=== PATIENT | male | born 1965 | race Caucasian/White ===

== ENCOUNTER 2018-03-07 16:49 | Emergency (ER) | payer SELFPAY ==
[~2018-03-07] VITALS: Ht 185.4 cm; Wt 107.0 kg
[2018-03-07 18:30] LABS: BASOPHILS % (AUTO) 1 % (0-10); EOSINOPHILS # (AUTO) 0.2 10^3/uL (0.0-0.3); EOSINOPHILS % (AUTO) 3 % (0-10); HEMATOCRIT 40 % (40-54); HEMOGLOBIN 14.1 G/DL (13.3-17.7); LYMPHOCYTES # (AUTO) 1.8 X 10^3 (1.0-4.0); LYMPHOCYTES % (AUTO) 23 % (12-44); MEAN CORPUSCULAR HEMOGLOBIN 31 PG (25-34); MEAN CORPUSCULAR HGB CONC 35 G/DL (32-36); MEAN CORPUSCULAR VOLUME 87 FL (80-99); MONOCYTES # (AUTO) 0.9 X 10^3 (0.0-1.0); MONOCYTES % (AUTO) 12 % (0-12); NEUTROPHILS # (AUTO) 4.7 X 10^3 (1.8-7.8); NEUTROPHILS % (AUTO) 62 % (42-75); PLATELET COUNT 368 10^3/uL (130-400); RED BLOOD COUNT 4.62 10^6/uL (4.35-5.85); RED CELL DISTRIBUTION WIDTH 13.1 % (10.0-14.5); WHITE BLOOD COUNT 7.6 10^3/uL (4.3-11.0)
[2018-03-07] MEDS ORDERED: NS IV 1000 ML 1,000 ML IV SCH ×2 (18:30→19:00)
[2018-03-07 18:45] LABS: ALBUMIN 4.5 GM/DL (3.2-4.5); BILIRUBIN,TOTAL 0.4 MG/DL (0.1-1.0); CALCIUM 10.5 MG/DL (8.5-10.1); CREATININE SERUM 1.81 MG/DL (0.60-1.30); POTASSIUM 4.1 MMOL/L (3.6-5.0); TOTAL PROTEIN 7.8 GM/DL (6.4-8.2)
[2018-03-07 19:20] LABS: BILIRUBIN,URINE NEGATIVE (NEGATIVE); CLARITY,URINE CLEAR; COLOR,URINE YELLOW; GLUCOSE, URINE (UA) 1+ (NEGATIVE); KETONES,URINE NEGATIVE (NEGATIVE); LEUKOCYTE ESTERASE ,URINE NEGATIVE (NEGATIVE); NITRITE,URINE NEGATIVE (NEGATIVE); PH,URINE 5 (5-9); PROTEIN,URINE NEGATIVE (NEGATIVE); UROBILINOGEN,URINE NORMAL (NORMAL)
[2018-03-07 19:27] LABS: HYALINE CASTS, URINE 25-50 /LPF; SQUAMOUS EPITHELIAL CELL,UR 0-2 /HPF
--- NOTE | 2018-03-07 19:27 | ED General ---
General Chief Complaint: Dizziness/Syncope Stated Complaint: DIZZINESS;LOW BP Nursing Triage Note: Pt reports blood pressure of 50/30 at home this morning. Pt states he has been dizzy and lethargic today Nursing Sepsis Screen: No Definite Risk Source of Information: Patient Exam Limitations: No Limitations History of Present Illness Date Seen by Provider: Mar 07, 2018 Time Seen by Provider: 19:25 Initial Comments To ER with reports of general malaise lethargic and dizzy. His blood pressure was measured at home to be 58/30 according to his . 3 days ago he was seen at [facility] for repeat sore throat. That has resolved but he now has a cough. Timing/Duration: 2-3 Days Severity: Moderate Associated Systoms: Cough, Fever/Chills (dry); No Nausea/Vomiting Allergies and Home Medications Allergies Coded Allergies: morphine (Unverified Allergy, Unknown, 03/07/18) Patient Home Medication List Home Medication List Reviewed: Yes Review of Systems Constitutional: see HPI EENTM: see HPI Respiratory: no symptoms reported Cardiovascular: no symptoms reported Genitourinary: no symptoms reported Musculoskeletal: no symptoms reported Skin: no symptoms reported Psychiatric/Neurological: No Symptoms Reported Hematologic/Lymphatic: No Symptoms Reported Past Ltwnpch-Mlafrr-Denmct Hx Patient Social History Alcohol Use: Denies Use Recreational Drug Use: No Smoking Status: Never a Smoker 2nd Hand Smoke Exposure: No Recent Foreign Travel: No Contact w/Someone Who Travel: No Recent Infectious Disease Expo: No Recent Hopitalizations: No Physical Abuse: No Sexual Abuse: No Seasonal Allergies Seasonal Allergies: No Past Medical History Surgeries: No Respiratory: No Cardiac: Yes Hypertension Neurological: No Genitourinary: No Gastrointestinal: No Musculoskeletal: No Endocrine: Yes (pre-diabetic) Cancer: No Psychosocial: No Nursing Suicide Risk Score: 0 Integumentary: No Blood Disorders: No Physical Exam Vital Signs Vital Signs - First Documented 03/07/18 17:18 Temp 97.6 Pulse 116 Resp 18 B/P (MAP) 110/73 (85) Pulse Ox 96 O2 Delivery Room Air Capillary Refill : Less Than 3 Seconds General Appearance: No Apparent Distress, WD/WN Eyes: Bilateral Eye Normal Inspection, Bilateral Eye PERRL, Bilateral Eye EOMI HEENT: PERRL/EOMI, TMs Normal Neck: Full Range of Motion, Normal Inspection Respiratory: No Accessory Muscle Use, No Respiratory Distress Cardiovascular: Regular Rate, Rhythm, Normal Peripheral Pulses Gastrointestinal: Normal Bowel Sounds, Non Tender, Soft Extremity: Normal Capillary Refill, Normal Inspection Neurologic/Psychiatric: Alert, Oriented x3, No Motor/Sensory Deficits Skin: Normal Color, Warm/Dry Progress/Results/Core Measures Suspected Sepsis Recent Fever Within 48 Hours: No Infection Criteria Present: None New/Unexplained Altered Menta: No Sepsis Screen: No Definite Risk SIRS Temperature:97.6 Pulse: 116 Respiratory Rate: 18 Laboratory Tests 03/07/18 18:02: White Blood Count 7.6 Blood Pressure 110 /73 Mean: 85 Laboratory Tests 03/07/18 18:02: Creatinine 1.81H, Platelet Count 368, Total Bilirubin 0.4 Results/Orders Lab Results Laboratory Tests Test 03/07/18 17:24 03/07/18 17:57 03/07/18 18:00 03/07/18 18:02 Range/Units Glucometer 234 H 70-110 MG/DL Group A Streptococcus Screen NEGATIVE NEGATIVE Monoscreen NEGATIVE NEGATIVE White Blood Count 7.6 4.3-11.0 10^3/uL Red Blood Count 4.62 4.35-5.85 10^6/uL Hemoglobin 14.1 13.3-17.7 G/DL Hematocrit 40 40-54 % Mean Corpuscular Volume 87 80-99 FL Mean Corpuscular Hemoglobin 31 25-34 PG Mean Corpuscular Hemoglobin Concent 35 32-36 G/DL Red Cell Distribution Width 13.1 10.0-14.5 % Platelet Count 368 130-400 10^3/uL Mean Platelet Volume 9.0 7.4-10.4 FL Neutrophils (%) (Auto) 62 42-75 % Lymphocytes (%) (Auto) 23 12-44 % Monocytes (%) (Auto) 12 0-12 % Eosinophils (%) (Auto) 3 0-10 % Basophils (%) (Auto) 1 0-10 % Neutrophils # (Auto) 4.7 1.8-7.8 X 10^3 Lymphocytes # (Auto) 1.8 1.0-4.0 X 10^3 Monocytes # (Auto) 0.9 0.0-1.0 X 10^3 Eosinophils # (Auto) 0.2 0.0-0.3 10^3/uL Basophils # (Auto) 0.0 0.0-0.1 10^3/uL Sodium Level 136 135-145 MMOL/L Potassium Level 4.1 3.6-5.0 MMOL/L Chloride Level 98 98-107 MMOL/L Carbon Dioxide Level 25 21-32 MMOL/L Anion Gap 13 5-14 MMOL/L Blood Urea Nitrogen 26 H 7-18 MG/DL Creatinine 1.81 H 0.60-1.30 MG/DL Estimat Glomerular Filtration Rate 40 BUN/Creatinine Ratio 14 Glucose Level 204 H 70-105 MG/DL Calcium Level 10.5 H 8.5-10.1 MG/DL Total Bilirubin 0.4 0.1-1.0 MG/DL Aspartate Amino Transf (AST/SGOT) 28 5-34 U/L Alanine Aminotransferase (ALT/SGPT) 38 0-55 U/L Alkaline Phosphatase 76 40-136 U/L Total Protein 7.8 6.4-8.2 GM/DL Albumin 4.5 3.2-4.5 GM/DL Lipase 27 8-78 U/L Test 03/07/18 19:12 Range/Units Urine Color YELLOW Urine Clarity CLEAR Urine pH 5 5-9 Urine Specific [place] 1.020 1.016-1.022 Urine Protein NEGATIVE NEGATIVE Urine Glucose (UA) 1+ H NEGATIVE Urine Ketones NEGATIVE NEGATIVE Urine Nitrite NEGATIVE NEGATIVE Urine Bilirubin NEGATIVE NEGATIVE Urine Urobilinogen NORMAL NORMAL MG/DL Urine Leukocyte Esterase NEGATIVE NEGATIVE Urine RBC (Auto) NEGATIVE NEGATIVE Urine RBC NONE /HPF Urine WBC NONE /HPF Urine Squamous Epithelial Cells 0-2 /HPF Urine Crystals NONE /LPF Urine Bacteria NONE /HPF Urine Casts PRESENT /LPF Urine Hyaline Casts 25-50 H /LPF Urine Mucus NONE /LPF Urine Culture Indicated NO My Orders Orders - TRI TALLEY APRN Cbc With Automated Diff (03/07/18 18:23) Comprehensive Metabolic Panel (03/07/18 18:23) Saline Lock/Iv-Start (03/07/18 18:23) Lipase (03/07/18 18:23) Ns Iv 1000 Ml (Sodium Chloride 0.9%) (03/07/18 18:30) Ua Culture If Indicated (03/07/18 18:47) Ns Iv 1000 Ml (Sodium Chloride 0.9%) (03/07/18 19:00) Rapid Strep A Screen (03/07/18 19:09) Monotest (4/11/18 19:09) Chest Pa/Lat (2 View) (03/07/18 19:09) Vital Signs/I&O 03/07/18 17:18 Temp 97.6 Pulse 116 Resp 18 B/P (MAP) 110/73 (85) Pulse Ox 96 O2 Delivery Room Air Capillary Refill : Less Than 3 Seconds Blood Pressure Mean: 85 Point of Care Testing Finger Stick Blood Glucose: 234 Departure Impression Primary Impression: Volume depletion Additional Impression: Viral syndrome Disposition: HOME, SELF-CARE Condition: Improved Departure-Patient Inst. Decision time for Depature: 20:17 Referrals: ANNE MARIE ROME MD (PCP) Primary Care Physician Patient Instructions: Syncope (Fainting) (DC) Add. Discharge Instructions: 1. Return to ER for any concerns 2. Medication as directed 3. Follow up with [facility] next week for recheck of kidney function All discharge instructions reviewed with patient and/or family. Voiced understanding. Work/School Note: Work Release Form Date Seen in the Emergency Department: Mar 07, 2018 Return to Work: Mar 11, 2018 TRI TALLEY APRN Mar 07, 2018 19:27
[2018-03-07 20:40] VITALS: BP 121/78
--- NOTE | 2018-03-07 20:40 | Diagnostic Imaging Report ---
PA and lateral chest at 816 hours. INDICATION: Dizziness and cough. There are no prior studies available for comparison. FINDINGS: The heart size is within normal limits. There is a thin strand of atelectasis/scar formation in the right perihilar region. The lungs are otherwise generally clear. There is no evidence for failure, pneumonia or for pleural effusion. The left hilum does seem prominent. This finding may merely be secondary to the pulmonary vessels in this area alone. The possibility that there is an underlying mass in this area should still be considered. Unless there are previous chest exams available to demonstrate that this finding is stable, then CT of the chest would be recommended for further study. The mediastinum is not widened. The osseous structures are intact. IMPRESSION: 1. There is a thin strand of atelectasis/scar formation in the right perihilar region. There is no acute cardiopulmonary abnormality identified. 2. The left hilum does seem prominent. Considerations and recommendations as above. Dictated by: Dictated on workstation # [id number]
--- OUTSIDE RECORDS SUMMARY | 2018-03-08 11:25 | XMS REPORT ---
Author Author ANNE MARIE ROME [facility] Address [address] [place] [address] Care Team Providers Care Towboat Engineer Name Role Phone ANNE MARIE ROME Unavailable PROBLEMS Type Condition ICD9-CM Code [id number] Code Onset Dates Condition Status SNOMED Code Problem Type 2 diabetes mellitus with hyperglycemia, without long-term current use of insulin E11.65 Active 86749433 Problem Essential hypertension I10 Active 13218492 Problem Dyslipidemia E78.5 Active 219163671 Problem Episodic mood disorder F39 Active 86758160 Problem Mild intermittent asthma without complication J45.20 Active 809757040 ALLERGIES Unknown Allergies SOCIAL HISTORY No smoking Hx information available PLAN OF CARE VITAL SIGNS MEDICATIONS Unknown Medications RESULTS No Results PROCEDURES No Known procedures IMMUNIZATIONS No Known Immunizations
--- OUTSIDE RECORDS SUMMARY | 2018-03-08 11:25 | XMS REPORT ---
Author Author ANNE MARIE ROME Organization [employer] Address Unknown Phone Unavailable Care Team Providers Care Packaging Line Attendant Name Role Phone ANNE MARIE ROME CP Unavailable Allergies, Adverse Reactions, Alerts Substance Reaction Event Type Morphine Sulfate Info Not Available Drug Allergy Problems Problem Type Condition ICD-9 Code Onset Dates Condition Status Problem Mood disorder 296.90 Active Problem Essential hypertension, benign 401.1 Active Problem Mild intermittent asthma in adult without complication 493.90 Active Assessment Mood disorder 296.90 Active Assessment Essential hypertension, benign 401.1 Active Assessment Mild intermittent asthma in adult without complication 493.90 Active Medications Medication Code System Code Instructions Start Date End Date Status Dosage Lisinopril-Hydrochlorothiazide [facility] [address]-29 20-25 MG Orally Once a day Jan 10, 2015 1 tablet Zoloft [facility] [address]-97 100 MG Orally Once a day February 10, 2015 1.5 tablet Procedures Procedure Coding System Code Date Office Visit, Est Pt., Level 3 CPT-4 78672 Jul 15, 2015 Vital Signs Date/Time: Jul 15, 2015 Temperature 97.5 F Weight 230.8 lbs Height 73 in BMI 30.45 Index Blood Pressure Diastolic 86 mmHg Blood Pressure Systolic 124 mmHg Cardiac Monitoring Heart Rate 74 bpm Results No Known Results Summary Purpose [employer] Submission
--- OUTSIDE RECORDS SUMMARY | 2018-03-08 11:25 | XMS REPORT ---
Author Author ADONIS DAWSON [facility] [employer] Address Unknown Phone Unavailable Care Team Providers Care Beer Still Runner Compounder Name Role Phone ADONIS DAWSON CP Unavailable Allergies, Adverse Reactions, Alerts Substance Reaction Event Type Morphine Sulfate Info Not Available Drug Allergy Problems Problem Type Condition Code Onset Dates Condition Status Problem Mild intermittent asthma in adult without complication 493.90 Active Problem Mood disorder 296.90 Active Problem Essential hypertension I10 Active Assessment Bronchitis J40 Active Medications Medication Code System Code Instructions Start Date End Date Status Dosage Lisinopril-Hydrochlorothiazide [facility] [address]-37 20-25 MG Orally Once a day Jan 10, 2015 1 tablet Zithromax [facility] [address]-93 250 MG Orally Once a day Oct 10, 2016 Oct 15, 2016 2 tablets on the first day, then 1 tablet daily for 4 days Zoloft [facility] [address]-86 100 MG Orally Once a day February 10, 2015 1.5 tablet Procedures Procedure Coding System Code Date Office Visit, Est Pt., Level 2 CPT-4 82924 Oct 10, 2016 Vital Signs Date/Time: Oct 10, 2016 Cardiac Monitoring Heart Rate 92 bpm Weight 232.2 lbs Height 73 in BMI 30.63 Index Blood Pressure Diastolic 78 mmHg Blood Pressure Systolic 134 mmHg Results No Known Results Summary Purpose [employer] Submission
--- OUTSIDE RECORDS SUMMARY | 2018-03-08 11:25 | XMS REPORT ---
Author Author ANNE MARIE ROME [facility] Address [address] [place] [address] Care Team Providers Care Animal Control Officer Name Role Phone ANNE MARIE ROME Unavailable PROBLEMS Type Condition ICD9-CM Code [id number] Code Onset Dates Condition Status SNOMED Code Problem Type 2 diabetes mellitus with hyperglycemia, without long-term current use of insulin E11.65 Active 16327550 Problem Essential hypertension I10 Active 28886344 Problem Dyslipidemia E78.5 Active 138978599 Problem Episodic mood disorder F39 Active 22063714 Problem Mild intermittent asthma without complication J45.20 Active 986868835 ALLERGIES No Information SOCIAL HISTORY Never Assessed PLAN OF CARE VITAL SIGNS MEDICATIONS Unknown Medications RESULTS No Results PROCEDURES No Known procedures IMMUNIZATIONS No Known Immunizations MEDICAL (GENERAL) HISTORY Type Description Date Medical History hypertension Medical History asthma Medical History mood disorder Medical History diabetes Surgical History tonsillectomy Surgical History appendectomy 1998
--- OUTSIDE RECORDS SUMMARY | 2018-03-08 11:25 | XMS REPORT ---
Author Author ANNE MARIE ROME [facility] Address [address] [place] [address] Care Team Providers Care Tennis Net Maker Name Role Phone ANNE MARIE ROME Unavailable PROBLEMS Type Condition ICD9-CM Code [id number] Code Onset Dates Condition Status SNOMED Code Problem Type 2 diabetes mellitus with hyperglycemia, without long-term current use of insulin E11.65 Active 07814545 Problem Essential hypertension I10 Active 53129537 Problem Dyslipidemia E78.5 Active 073748864 Problem Episodic mood disorder F39 Active 32794444 Problem Mild intermittent asthma without complication J45.20 Active 564130125 ALLERGIES Unknown Allergies SOCIAL HISTORY No smoking Hx information available PLAN OF CARE VITAL SIGNS MEDICATIONS Medication Instructions Dosage Frequency Start Date End Date Duration Status Lisinopril-Hydrochlorothiazide 20-25 MG Orally Once a day 1 tablet 24h Dec, 15 days Active Zoloft 100 mg Orally Once a day 1.5 tablet 24h Jan, 15 days Active RESULTS No Results PROCEDURES No Known procedures IMMUNIZATIONS No Known Immunizations
--- OUTSIDE RECORDS SUMMARY | 2018-03-08 11:25 | XMS REPORT ---
Author Author [facility] CLAY [facility] Address [address] [place] [address] Care Team Providers Care Asphalt Tile Floor Layer Name Role Phone CASIE CLAY Unavailable PROBLEMS Type Condition ICD9-CM Code [id number] Code Onset Dates Condition Status SNOMED Code Problem Type 2 diabetes mellitus with hyperglycemia, without long-term current use of insulin E11.65 Active 64384935 Problem Essential hypertension I10 Active 99313044 Problem Dyslipidemia E78.5 Active 174014519 Problem Episodic mood disorder F39 Active 62442535 Problem Mild intermittent asthma without complication J45.20 Active 258562659 ALLERGIES Substance Reaction Event Type Date Status Morphine Sulfate Unknown Drug Allergy Jan, Active SOCIAL HISTORY Never Assessed PLAN OF CARE Activity Details Follow Up prn Reason: VITAL SIGNS Height 73 in 2017-01-28 Weight 234.4 lbs 2017-01-28 Temperature 99.0 degrees Fahrenheit 2017-01-28 Heart Rate 104 bpm 2017-01-28 Respiratory Rate 20 2017-01-28 BMI 30.92 kg/m2 2017-01-28 Blood pressure systolic 136 mmHg 2017-01-28 Blood pressure diastolic 88 mmHg 2017-01-28 MEDICATIONS Medication Instructions Dosage Frequency Start Date End Date Duration Status Lisinopril-Hydrochlorothiazide 20-25 MG Orally Once a day 1 tablet 24h Dec, 90 days Active Amoxicillin 500 mg Orally every 12 hrs 2 capsule 12h Jan, Jan, 10 day(s) Active Zoloft 100 MG Orally Once a day 1 1/2 tablets 24h Jan, 90 days Active Metformin HCl 500 mg Orally Once a day 1 tablet with meals 24h Jan, 30 day(s) Active RESULTS Name Result Date Reference Range INFLUENZA A & B (IN HOUSE) 2017-01-28 INFLUENZA A Negative INFLUENZA B Negative Control + Lot # [id number] Exp date 10/17/18 STREP A (IN HOUSE) 2017-01-28 STREP A Positive Control + Lot # [id number] Exp date 08/12/18 PROCEDURES Procedure Date Ordered Result Body Site INFLUENZA ASSAY W/OPTIC January 28, 2017 STREP A ASSAY W/OPTIC January 28, 2017 IMMUNIZATIONS No Known Immunizations MEDICAL (GENERAL) HISTORY Type Description Date Medical History hypertension Medical History asthma Medical History mood disorder Medical History diabetes Surgical History tonsillectomy Surgical History appendectomy 1998
--- OUTSIDE RECORDS SUMMARY | 2018-03-08 11:25 | XMS REPORT ---
Author Author WILD ANNE MARIE Organization [facility] Address [address] [place] [address] Care Team Providers Care Ward Supervisor Name Role Phone RENE ROMEHANY Unavailable PROBLEMS Type Condition ICD9-CM Code [id number] Code Onset Dates Condition Status SNOMED Code Problem Type 2 diabetes mellitus with hyperglycemia, without long-term current use of insulin E11.65 Active 72158135 Problem Essential hypertension I10 Active 39766267 Problem Dyslipidemia E78.5 Active 359582548 Problem Episodic mood disorder F39 Active 25940738 Problem Mild intermittent asthma without complication J45.20 Active 127502999 ALLERGIES No Information ENCOUNTERS Encounter Location Date Diagnosis [place] [address] [address] Dec, Type 2 diabetes mellitus with hyperglycemia, without long- term current use of insulin E11.65 [place] [address] [address] Nov, Type 2 diabetes mellitus with hyperglycemia, without long- term current use of insulin E11.65 ; Colon cancer screening Z12.11 ; Essential hypertension I10 ; Dyslipidemia E78.5 ; Episodic mood disorder F39 and Encounter for immunization Z23 [place] [address] [address] Oct, Type 2 diabetes mellitus with hyperglycemia, without long- term current use of insulin E11.65 and Dyslipidemia E78.5 [place] [address] [address] Oct, Type 2 diabetes mellitus with hyperglycemia, without long- term current use of insulin E11.65 and Dyslipidemia E78.5 [place] [address] [address] Oct, Type 2 diabetes mellitus with hyperglycemia, without long- term current use of insulin E11.65 and Dyslipidemia E78.5 [facility] [address], [place] [address] Aug, [facility] [address], [place] [address] 66[address] Aug, [facility] [id number] [place] [address]- 4216 May, [facility] [address] [place] [address]75- 3974 May, Acute bilateral low back pain without sciatica M54.5 [facility] [address] [place] [id number] [place] [address]38- 0562 Apr, [place] [address] [place] [address] 97507- 9137 Apr, Type 2 diabetes mellitus with hyperglycemia, without long- term current use of insulin E11.65 ; Episodic mood disorder F39 ; Essential hypertension I10 and Dyslipidemia E78.5 [facility] [address], [place] [address] Feb, Dyslipidemia E78.5 and Type 2 diabetes mellitus with hyperglycemia, without long-term current use of insulin E11.65 [facility] [address], [place] [address] Jan, Acute upper respiratory infection, unspecified J06.9 ; Other viral agents as the cause of diseases classified elsewhere B97.89 and Strep pharyngitis J02.0 [facility] [address], [place] [address] Jan, [facility] [address] [place] [address] 47996- 9117 Jan, Hyperglycemia R73.9 [facility] [address], [place] [address] 137[address] Dec, Hyperglycemia R73.9 [facility] [address] [place] [id number] [place] [address] 8[address]13- 7677 Dec, Essential hypertension I10 and Episodic mood disorder F39 [facility] [address] [address]- 2[address] Nov, Mood disorder 296.90 and Essential hypertension, benign 401.1 [facility] [address] [place] [id number] [place] [address] 8[address]18- 2509 Oct, [facility] [address] 5[address]- 9[address] Sep, Bronchitis J40 [facility] [address] [address]- 9985 March, Poison adriana dermatitis L23.7 [facility] [address] [place] [id number] [place] [address] 33142- 9271 March, Poison adriana dermatitis L23.7 and Essential hypertension I10 [facility] [address] [place] [id number] [place] [address] 12596- 1421 Jun, Essential hypertension, benign 401.1 ; Mild intermittent asthma in adult without complication 493.90 and Mood disorder 296.90 [facility] [address] [place] [id number] [place] [address] 20121- 0521 May, [facility] [address] [place] [id number] [place] [address] 97454- 6974 30 Feb, 2015 [facility] [address] [place] [id number] [place] [address] 49819- 9879 Feb, [facility] [address] [place] [id number] [place] [address] 33715- 0952 Feb, [facility] [address] [address]- 65[address] Jan, [facility] [address] [place] [id number] [place] [address] 92887- 5115 Jan, [facility] [address] [address]- 1437 14 Dec, 2014 [facility] [address] [id number] [place] [address]- 7295 14 Dec, 2014 [facility] [address] [id number] [place] [address]- 3790 10 Dec, 2014 [facility] [address] [id number] [place] [address]- 0842 10 Dec, 2014 [facility] [address] [id number] [place] [address]- 6805 10 Dec, 2013 [facility] [address] [id number] [place] [address]- 8500 10 Dec, 2013 [facility] [address] [id number] [place] [address]- 6312 Nov, [facility] [address] [facility] [id number] [place] [address]- 8572 Nov, [facility] [address] [id number] [place] [address]- 1085 Oct, [facility] [address] [id number] [place] [address]- 3314 Oct, [facility] [address] [facility] [id number] [place] [address]- 4018 Oct, [facility] [address] [id number] [place] [address]- 9519 Oct, [facility] [place] [facility] [address] [id number] [place] [address]- 2540 Oct, [facility] [place] [facility] [address] [id number] [place] [address]- 8633 Oct, [facility] [place] [facility] [address] [id number] [place] [address]- 2291 15 Sep, 2013 [facility] [place] [facility] [address] [facility] [id number] [place] [address]- 5940 15 Sep, 2013 [facility] [place] [facility] [address], [place] [address]- 6[address] Aug, [facility] [address] [place] [id number] [address]- 9846 Aug, [facility] [address], [place] [address]- 9346 Dec, [facility] [address], [place] [address]- 0399 Dec, [facility] [address], [place] [address]- 1585 May, [facility] [address], [place] [address]- 1886 May, [facility] [address], [place] [address]- 7808 Apr, [facility] [address], [place] [address]- 1056 Jan, [facility] [address] [place] [id number], [place] [address]- 8959 Jan, IMMUNIZATIONS No Known Immunizations SOCIAL HISTORY Never Assessed REASON FOR VISIT Medication change PLAN OF CARE VITAL SIGNS MEDICATIONS Medication Instructions Dosage Frequency Start Date End Date Duration Status Tizanidine HCl 2 MG Orally Three times a day 1 tablet as needed 8h May, Active RESULTS No Results PROCEDURES No Known procedures INSTRUCTIONS MEDICATIONS ADMINISTERED No Known Medications MEDICAL (GENERAL) HISTORY Type Description Date Medical History hypertension Medical History asthma Medical History mood disorder Medical History diabetes Surgical History tonsillectomy Surgical History appendectomy 1998
--- OUTSIDE RECORDS SUMMARY | 2018-03-08 11:25 | XMS REPORT ---
Author Author ANNE MARIE ROME [facility] Address [address] [place] [address] Care Team Providers Care Direct Casting Operator Name Role Phone ANNE MARIE ROME Unavailable PROBLEMS Type Condition ICD9-CM Code [id number] Code Onset Dates Condition Status SNOMED Code Problem Type 2 diabetes mellitus with hyperglycemia, without long-term current use of insulin E11.65 Active 71114461 Problem Essential hypertension I10 Active 09420045 Problem Dyslipidemia E78.5 Active 928479449 Problem Episodic mood disorder F39 Active 62127100 Problem Mild intermittent asthma without complication J45.20 Active 933317349 ALLERGIES No Information SOCIAL HISTORY Never Assessed PLAN OF CARE VITAL SIGNS MEDICATIONS Medication Instructions Dosage Frequency Start Date End Date Duration Status Metformin HCl 500 mg Orally Once a day 1 tablet with meals 24h Jan, 30 day(s) Active RESULTS No Results PROCEDURES No Known procedures IMMUNIZATIONS No Known Immunizations MEDICAL (GENERAL) HISTORY Type Description Date Medical History hypertension Medical History asthma Medical History mood disorder Medical History diabetes Surgical History tonsillectomy Surgical History appendectomy 1998
--- OUTSIDE RECORDS SUMMARY | 2018-03-08 11:26 | XMS REPORT ---
Author Author WILD ANNE MARIE Organization [facility] Address [address] [place] [address] Care Team Providers Care Substation Operator Apprentice Name Role Phone RENE ROMEHANY Unavailable PROBLEMS Type Condition ICD9-CM Code [id number] Code Onset Dates Condition Status SNOMED Code Problem Type 2 diabetes mellitus with hyperglycemia, without long-term current use of insulin E11.65 Active 45412935 Problem Essential hypertension I10 Active 98958866 Problem Dyslipidemia E78.5 Active 511425285 Problem Episodic mood disorder F39 Active 39359700 Problem Mild intermittent asthma without complication J45.20 Active 208817258 ALLERGIES Substance Reaction Event Type Date Status Morphine Sulfate Unknown Drug Allergy Dec, Active SOCIAL HISTORY Never Assessed PLAN OF CARE Activity Details Follow Up 1 Year Reason:HTN VITAL SIGNS Height 73 in 2017-01-18 Temperature 98.3 degrees Fahrenheit 2017-01-18 Heart Rate 100 bpm 2017-01-18 Respiratory Rate 20 2017-01-18 Blood pressure systolic 130 mmHg 2017-01-18 Blood pressure diastolic 84 mmHg 2017-01-18 MEDICATIONS Medication Instructions Dosage Frequency Start Date End Date Duration Status Lisinopril-Hydrochlorothiazide 20-25 MG Orally Once a day 1 tablet 24h Dec, 90 days Active Zoloft 100 MG Orally Once a day 1 1/2 tablets 24h Jan, 90 days Active RESULTS Name Result Date Reference Range LIPID PANEL 2017-01-18 Cholesterol, Total 197 100-199 Triglycerides 251 0-149 HDL Cholesterol 34 >39 VLDL Cholesterol Matthew 50 5-40 LDL Cholesterol Calc 113 0-99 Comment: CMP 2017-01-18 Glucose, Serum 292 65-99 BUN 18 6-24 Creatinine, Serum 0.90 0.76-1.27 eGFR If NonAfricn Am 100 >59 eGFR If Africn Am 116 >59 BUN/Creatinine Ratio 20 9-20 Sodium, Serum 134 134-144 Potassium, Serum 4.4 3.5-5.2 Chloride, Serum 93 96-106 Carbon Dioxide, Total 22 18-29 Calcium, Serum 10.0 8.7-10.2 Protein, Total, Serum 7.5 6.0-8.5 Albumin, Serum 4.8 3.5-5.5 Globulin, Total 2.7 1.5-4.5 A/G Ratio 1.8 1.1-2.5 Bilirubin, Total 0.3 0.0-1.2 Alkaline Phosphatase, S 74 39-117 AST (SGOT) 24 0-40 ALT (SGPT) 33 0-44 PROCEDURES Procedure Date Ordered Result Body Site LIPID PANEL Jan 18, 2017 COMPREHEN METABOLIC PANEL Jan 18, 2017 VENIPUNCT, ROUTINE* Jan 18, 2017 IMMUNIZATIONS No Known Immunizations MEDICAL (GENERAL) HISTORY Type Description Date Medical History hypertension Medical History asthma Medical History mood disorder Medical History diabetes Surgical History tonsillectomy Surgical History appendectomy 1998
--- OUTSIDE RECORDS SUMMARY | 2018-03-08 11:26 | XMS REPORT ---
Author Author ANNE MARIE ROME Organization [facility] Address [address] [place] [address] Care Team Providers Care Grease Press Helper Name Role Phone WILDRENE العليHANY Unavailable PROBLEMS Type Condition ICD9-CM Code [id number] Code Onset Dates Condition Status SNOMED Code Problem Type 2 diabetes mellitus with hyperglycemia, without long-term current use of insulin E11.65 Active 27038584 Problem Essential hypertension I10 Active 40784196 Problem Dyslipidemia E78.5 Active 270954453 Problem Episodic mood disorder F39 Active 73429896 Problem Mild intermittent asthma without complication J45.20 Active 511137708 ALLERGIES No Information SOCIAL HISTORY Never Assessed PLAN OF CARE VITAL SIGNS MEDICATIONS Unknown Medications RESULTS Name Result Date Reference Range [facility] 2017-01-25 Glucose, Serum 214 65-99 BUN 12 6-24 Creatinine, Serum 0.86 0.76-1.27 eGFR If NonAfricn Am 102 >59 eGFR If Africn Am 118 >59 BUN/Creatinine Ratio 14 9-20 Sodium, Serum 135 134-144 Potassium, Serum 4.7 3.5-5.2 Chloride, Serum 94 96-106 Carbon Dioxide, Total 22 18-29 Calcium, Serum 9.3 8.7-10.2 A1C (IN HOUSE) 2017-01-25 A1C IN HOUSE 10.4 4.3 - 5.6 % Previous A1c n/a Lot [id number] Exp date 09/2018 PROCEDURES Procedure Date Ordered Result Body Site BASIC METABOLIC PANEL January 25, 2017 GLYCATED HEMOGLOBIN TEST January 25, 2017 VENIPUNCT, ROUTINE* January 25, 2017 IMMUNIZATIONS No Known Immunizations MEDICAL (GENERAL) HISTORY Type Description Date Medical History hypertension Medical History asthma Medical History mood disorder Medical History diabetes Surgical History tonsillectomy Surgical History appendectomy 1998
--- OUTSIDE RECORDS SUMMARY | 2018-03-08 11:26 | XMS REPORT ---
Author Author WILD ANNE MARIE Organization [facility] Address [address] [place] [address] Care Team Providers Care Preparation Operator Name Role Phone RENE ROMEHANY Unavailable PROBLEMS Type Condition ICD9-CM Code [id number] Code Onset Dates Condition Status SNOMED Code Problem Type 2 diabetes mellitus with hyperglycemia, without long-term current use of insulin E11.65 Active 75599480 Problem Essential hypertension I10 Active 61360108 Problem Dyslipidemia E78.5 Active 530747245 Problem Episodic mood disorder F39 Active 26686184 Problem Mild intermittent asthma without complication J45.20 Active 142262744 ALLERGIES No Information ENCOUNTERS Encounter Location Date Diagnosis [place] [id number] [address] Dec, Type 2 diabetes mellitus with hyperglycemia, without long- term current use of insulin E11.65 [place] [address] [address]- [address] Nov, Type 2 diabetes mellitus with hyperglycemia, without long- term current use of insulin E11.65 ; Colon cancer screening Z12.11 ; Essential hypertension I10 ; Dyslipidemia E78.5 ; Episodic mood disorder F39 and Encounter for immunization Z23 [place] [address] [address]- 8959 Oct, Type 2 diabetes mellitus with hyperglycemia, without long- term current use of insulin E11.65 and Dyslipidemia E78.5 [place] [address] [address]- 8193 Oct, Type 2 diabetes mellitus with hyperglycemia, without long- term current use of insulin E11.65 and Dyslipidemia E78.5 [place] [address] [address]- 2196 Oct, Type 2 diabetes mellitus with hyperglycemia, without long- term current use of insulin E11.65 and Dyslipidemia E78.5 [facility] [address], [place] [address]- 7165 Aug, [facility] [address], [place] [address]- 9299 Aug, [facility] [address] [place] [address]99- 5233 May, [facility] [address] [place] [address] 39121- 7985 May, Acute bilateral low back pain without sciatica M54.5 [facility] [address] [place] [id number] [place] [address]- 0411 Apr, [place] [address] [place] [address] 26969- 7219 Apr, Type 2 diabetes mellitus with hyperglycemia, without long- term current use of insulin E11.65 ; Episodic mood disorder F39 ; Essential hypertension I10 and Dyslipidemia E78.5 [facility] [address], [place] [address]- 5443 Feb, Dyslipidemia E78.5 and Type 2 diabetes mellitus with hyperglycemia, without long-term current use of insulin E11.65 [facility] [address], [place] [address] Jan, Acute upper respiratory infection, unspecified J06.9 ; Other viral agents as the cause of diseases classified elsewhere B97.89 and Strep pharyngitis J02.0 [facility] [address], [place] [address]- [address] Jan, [facility] [address] [place] [address] 49844- 5735 Jan, Hyperglycemia R73.9 [facility] [address], [place] [address]- 2260 Dec, Hyperglycemia R73.9 [facility] [address] [place] [id number] [place] [address] 94637- 9593 Dec, Essential hypertension I10 and Episodic mood disorder F39 [facility] [address] [address]- 3498 Nov, Mood disorder 296.90 and Essential hypertension, benign 401.1 [facility] [address] [place] [id number] [place] [address] 62627- 3458 Oct, [facility] [address] [address]- 4310 Sep, Bronchitis J40 [facility] [address] [address]- 6439 March, Poison adriana dermatitis L23.7 [facility] [address] [place] [id number] [place] [address] 608[address]- 3578 March, Poison adriana dermatitis L23.7 and Essential hypertension I10 [facility] [address] [place] [id number] [place] [address] 67648- 7310 Jun, Essential hypertension, benign 401.1 ; Mild intermittent asthma in adult without complication 493.90 and Mood disorder 296.90 [facility] [address] [place] [id number] [place] [address] 56942- 9130 May, [facility] [address] [place] [id number] [place] [address] 58026- 4792 30 Feb, 2015 [facility] [address] [place] [id number] [place] [address] 030[address]- 9780 Feb, [facility] [address] [place] [id number] [place] [address]- 1937 Feb, [facility] [address] [address]- 9230 Jan, [facility] [address] [place] [id number] [place] [address] 47464- 1660 Jan, [facility] [address] [address]- 1521 14 Dec, 2014 [facility] [address] [id number] [place] [address]- 0757 14 Dec, 2014 [facility] [address] [id number] [place] [address]- 9085 10 Dec, 2014 [facility] [address] [id number] [place] [address]- 7288 10 Dec, 2014 [facility] [address] [id number] [place] [address]- 0206 10 Dec, 2013 [facility] [address] [id number] [place] [address]- 8997 10 Dec, 2013 [facility] [address] [id number] [place] [address]- 1901 Nov, [facility] [address] [facility] [id number] [place] [address]- 0812 Nov, [facility] [address] [id number] [place] [address]- 8202 Oct, [facility] [address] [id number] [place] [address]- 9296 Oct, [facility] [address] [facility] [id number] [place] [address]- 4001 Oct, [facility] [address] [id number] [place] [address]- 7919 Oct, [facility] [place] [facility] [address] [id number] [place] [address]- 2541 Oct, [facility] [place] [facility] [address] [id number] [place] [address]- 7423 Oct, [facility] [place] [facility] [address] [id number] [place] [address]- 3474 15 Sep, 2013 [facility] [place] [facility] [address] [facility] [id number] [place] [address]- 0463 15 Sep, 2013 [facility] [place] [facility] [address], [place] [address]- 4548 Aug, [facility] [address] [place] [id number] [address]- 1688 Aug, [facility] [address], [place] [address]- 6577 Dec, [facility] [address] [place] [address]- 3067 Dec, [facility] [address], [place] [address]- 1866 May, [facility] [address], [place] [address]- 1196 May, [facility] [address], [place] [address]- 2026 Apr, [facility] [address], [place] [address]- 1133 Jan, [facility] [address] [id number], [place] [address]- 6584 Jan, IMMUNIZATIONS No Known Immunizations SOCIAL HISTORY Never Assessed REASON FOR VISIT clarification on Rx PLAN OF CARE VITAL SIGNS MEDICATIONS Unknown Medications RESULTS No Results PROCEDURES No Known procedures INSTRUCTIONS MEDICATIONS ADMINISTERED No Known Medications MEDICAL (GENERAL) HISTORY Type Description Date Medical History hypertension Medical History asthma Medical History mood disorder Medical History diabetes Surgical History tonsillectomy Surgical History appendectomy 1998
--- OUTSIDE RECORDS SUMMARY | 2018-03-08 11:26 | XMS REPORT | Continuity of Care Document ---
Author Author [facility] Address Unknown Phone Unavailable Allergies Active Description Code Type Severity Reaction Onset Reported/Identified Relationship to Patient Clinical Status Yes morphine Drug Allergy 04/04/2009 Yes morphine Drug Allergy N/A N/A 04/04/2009 Medications There is no data. Problems Date Dx Coded Attending Type Code Diagnosis Diagnosed By 06/05/2008 DIONY ROSENBERG APRN 493.90 ASTHMA UNSPECIFIED 06/05/2008 VAZQUEZ DO ADÁN K 493.90 ASTHMA UNSPECIFIED 06/05/2008 VAZQUEZ DO, ADÁN K 493.90 ASTHMA UNSPECIFIED 06/05/2008 VAZQUEZ DO, ADÁN K 493.90 ASTHMA UNSPECIFIED 06/05/2008 DESTINEE RODNEY APRN A 493.90 ASTHMA UNSPECIFIED 06/05/2008 VAZQUEZ DO, ADÁN K 493.90 ASTHMA UNSPECIFIED 06/05/2008 JANELLE STOVER APRN 493.90 ASTHMA UNSPECIFIED 06/30/2008 DIONY ROSENBERG APRN R 133.0 SCABIES 06/30/2008 VAZQUEZ DO, ADÁN K 133.0 SCABIES 06/30/2008 VAZQUEZ DO, ADÁN K 133.0 SCABIES 06/30/2008 VAZQUEZ DO, ADÁN K 133.0 SCABIES 06/30/2008 DESTINEE RODNEY APRN A 133.0 SCABIES 06/30/2008 VAZQUEZ DO, ADÁN K 133.0 SCABIES 06/30/2008 JANELLE STOVER APRN 133.0 SCABIES 09/22/2008 DIONY ROSENBERG APRN R 465.9 ECHO VIRUS UPPER RESPIRATORY 09/22/2008 VAZQUEZ DO ADÁN K 465.9 ECHO VIRUS UPPER RESPIRATORY 09/22/2008 VAZQUEZ DO ADÁN K 465.9 ECHO VIRUS UPPER RESPIRATORY 09/22/2008 VAZQUEZ DO, ADÁN K 465.9 ECHO VIRUS UPPER RESPIRATORY 09/22/2008 DESTINEE RODNEY APRN A 465.9 ECHO VIRUS UPPER RESPIRATORY 09/22/2008 VAZQUEZ DO, ADÁN K 465.9 ECHO VIRUS UPPER RESPIRATORY 09/22/2008 JANELLE STOVER APRN 465.9 ECHO VIRUS UPPER RESPIRATORY 12/01/2008 DIONY ROSENBERG APRN R 034.0 STREP THROAT 12/01/2008 VAZQUEZ DO, DAÁN K 034.0 STREP THROAT 12/01/2008 VAZQUEZ DO, ADÁN K 034.0 STREP THROAT 12/01/2008 VAZQUEZ DO, ADÁN K 034.0 STREP THROAT 12/01/2008 REENA RODNEY APRNYL A 034.0 STREP THROAT 12/01/2008 VAZQUEZ DO, ADÁN K 034.0 STREP THROAT 12/01/2008 JANELLE STOVER APRN 034.0 STREP THROAT 03/26/2009 DIONY ROSENBERG APRN R 477.9 RHINITIS 03/26/2009 VAZQUEZ DO, ADÁN K 477.9 RHINITIS 03/26/2009 VAZQUEZ DO, ADÁN K 477.9 RHINITIS 03/26/2009 VAZQUEZ DO, ADÁN K 477.9 RHINITIS 03/26/2009 REENA RODNEY APRNYL A 477.9 RHINITIS 03/26/2009 VAZQUEZ DO, ADÁN K 477.9 RHINITIS 03/26/2009 JANELLE STOVER APRN 477.9 RHINITIS 04/04/2009 DIONY ROSENBERG APRN R 786.2 cough 04/04/2009 VAZQUEZ DO, ADÁN K 786.2 cough 04/04/2009 VAZQUEZ DO, ADÁN K 786.2 cough 04/04/2009 VAZQUEZ DO, ADÁN K 786.2 cough 04/04/2009 REENA RODNEY APRNYL A 786.2 cough 04/04/2009 VAZQUEZ DO, ADÁN K 786.2 cough 04/04/2009 JANELLE STOVER APRN 786.2 cough 08/29/2011 DIONY ROSENBERG APRN R 466.0 BRONCHITIS, ACUTE 08/29/2011 VAZQUEZ DO, ADÁN K 466.0 BRONCHITIS, ACUTE 08/29/2011 VAZQUEZ DO, ADÁN K 466.0 BRONCHITIS, ACUTE 08/29/2011 VAZQUEZ DO, ADÁN K 466.0 BRONCHITIS, ACUTE 08/29/2011 REENA RODNEY APRNYL A 466.0 BRONCHITIS, ACUTE 08/29/2011 VAZQUEZ DO, ADÁN K 466.0 BRONCHITIS, ACUTE 08/29/2011 JANELLE STOVER APRN 466.0 BRONCHITIS, ACUTE 02/06/2012 DOINY ROSENBERG APRN R 296.90 MOOD DISORDER 02/06/2012 VAZQUEZ DO, ADÁN K 296.90 MOOD DISORDER 02/06/2012 VAZQUEZ DO, ADÁN K 296.90 MOOD DISORDER 02/06/2012 VAZQUEZ DO, ADÁN K 296.90 MOOD DISORDER 02/06/2012 REENA RODNEY APRNYL A 296.90 MOOD DISORDER 02/06/2012 VAZQUEZ DO, ADÁN K 296.90 MOOD DISORDER 02/06/2012 JANELLE STOVER APRN 296.90 MOOD DISORDER 05/18/2012 DIONY ROSENBERG APRN R 034.0 STREP THROAT 05/18/2012 VAZQUEZ DO, ADÁN K 034.0 STREP THROAT 05/18/2012 VAZQUEZ DO, ADÁN K 034.0 STREP THROAT 05/18/2012 VAZQUEZ DO, ADÁN K 034.0 STREP THROAT 05/18/2012 DESTINEE RODNEY APRN A 034.0 STREP THROAT 05/18/2012 VAZQUEZ DO, ADÁN K 034.0 STREP THROAT 05/18/2012 JANELLE STOVER APRN 034.0 STREP THROAT 06/01/2012 DIONY ROSENBERG APRN R 462 ACUTE PHARYNGITIS 06/01/2012 VAZQUEZ DO, ADÁN K 462 ACUTE PHARYNGITIS 06/01/2012 VAZQUEZ DO, ADÁN K 462 ACUTE PHARYNGITIS 06/01/2012 VAZQUEZ DO, ADÁN K 462 ACUTE PHARYNGITIS 06/01/2012 DESTINEE RODNEY APRN A 462 ACUTE PHARYNGITIS 06/01/2012 VAZQUEZ DO, ADÁN K 462 ACUTE PHARYNGITIS 06/01/2012 JANELLE STOVER APRN 462 ACUTE PHARYNGITIS 01/07/2013 DIONY ROSENBERG APRN R 487.1 INFLUENZA 01/07/2013 VAZQUEZ DO, ADÁN K 487.1 INFLUENZA 01/07/2013 VAZQUEZ DO, ADÁN K 487.1 INFLUENZA 01/07/2013 VAZQUEZ DO, ADÁN K 487.1 INFLUENZA 01/07/2013 DESTINEE RODNEY APRN 487.1 INFLUENZA 01/07/2013 VAZQUEZ DO ADÁN K 487.1 INFLUENZA 01/07/2013 JANELLE STOVER APRN 487.1 INFLUENZA 09/25/2013 VAZQUEZ DO ADÁN K 796.2 ELEVATED BLOOD PRESSURE READING WITHOUT DIAGNOSIS OF HYPERTENSION 09/25/2013 VAZQUEZ DO, ADÁN K 796.2 ELEVATED BLOOD PRESSURE READING WITHOUT DIAGNOSIS OF HYPERTENSION 09/25/2013 VAZQUEZ DO, ADÁN K 796.2 ELEVATED BLOOD PRESSURE READING WITHOUT DIAGNOSIS OF HYPERTENSION 09/25/2013 JORJEJAZMYNCatarina NAVARROChaz DESTINEE A 796.2 ELEVATED BLOOD PRESSURE READING WITHOUT DIAGNOSIS OF HYPERTENSION 09/25/2013 VAZQUEZ DO, ADÁN K 796.2 ELEVATED BLOOD PRESSURE READING WITHOUT DIAGNOSIS OF HYPERTENSION 09/25/2013 JANELLE STOVER APRN 796.2 ELEVATED BLOOD PRESSURE READING WITHOUT DIAGNOSIS OF HYPERTENSION 10/11/2013 VAZQUEZ DO, ADÁN K 401.1 HYPERTENSION, BENIGN ESSENTIAL 10/11/2013 VAZQUEZ DO, ADÁN K 401.1 HYPERTENSION, BENIGN ESSENTIAL 10/11/2013 REENA RODNEY APRNYL A 401.1 HYPERTENSION, BENIGN ESSENTIAL 10/11/2013 VAZQUEZ DO, ADÁN K 401.1 HYPERTENSION, BENIGN ESSENTIAL 10/11/2013 JANELLE STOVER APRN 401.1 HYPERTENSION, BENIGN ESSENTIAL 2013 REENA RODNEY APRNYL A 381.81 EUSTACHIAN TUBE DYSFUNCTION 2013 REENA RODNEY APRNYL A 785.6 LYMPHADENOPATHY 2013 VAZQUEZ DO, ADÁN K 381.81 EUSTACHIAN TUBE DYSFUNCTION 2013 VAZQUEZ DO, ADÁN K 785.6 LYMPHADENOPATHY 2013 JANELLE STOVRE APRN 381.81 EUSTACHIAN TUBE DYSFUNCTION 2013 JANELLE STOVER APRN 785.6 LYMPHADENOPATHY 11/29/2013 VAZQUEZ , ADÁN K 296.99 OTHER SPECIFIED EPISODIC MOOD DISORDER 11/29/2013 JANELLE STOVER APRN 296.99 OTHER SPECIFIED EPISODIC MOOD DISORDER 01/06/2014 JANELLE STOVER APRN 465.9 UPPER RESPIRATORY INFECTION Procedures Code [place] [address] INFLUENZA A & B (IN-HOUSE) 01/07/2013 2000F BLOOD PRESSURE CHECK 09/25/2013 32250 ROUTINE VENIPUNCTURE 11/14/2013 63438 CMP 11/14/2013 [id number] GFR CALC (RESULT ONLY) 11/14/2013 Results Test Result Range Comp. Metabolic Panel (14) - 01/18/17 15:29 Glucose, Serum 292 mg/dL 65-99 BUN 18 mg/dL 6-24 Creatinine, Serum 0.90 mg/dL 0.76-1.27 eGFR If NonAfricn Am 100 mL/min/1.73 >59 eGFR If Africn Am 116 mL/min/1.73 >59 BUN/Creatinine Ratio 20 9-20 Sodium, Serum 134 mmol/L 134-144 Potassium, Serum 4.4 mmol/L 3.5-5.2 Chloride, Serum 93 mmol/L 96-106 Carbon Dioxide, Total 22 mmol/L 18-29 Calcium, Serum 10.0 mg/dL 8.7-10.2 Protein, Total, Serum 7.5 g/dL 6.0-8.5 Albumin, Serum 4.8 g/dL 3.5-5.5 Globulin, Total 2.7 g/dL 1.5-4.5 A/G Ratio 1.8 1.1-2.5 Bilirubin, Total 0.3 mg/dL 0.0-1.2 Alkaline Phosphatase, S 74 IU/L 39-117 AST (SGOT) 24 IU/L 0-40 ALT (SGPT) 33 IU/L 0-44 Lipid Panel - 01/18/17 15:29 Cholesterol, Total 197 mg/dL 100-199 Triglycerides 251 mg/dL 0-149 HDL Cholesterol 34 mg/dL >39 VLDL Cholesterol Matthew 50 mg/dL 5-40 LDL Cholesterol Calc 113 mg/dL 0-99 Basic Metabolic Panel (8) - 01/25/17 08:02 Glucose, Serum 214 mg/dL 65-99 BUN 12 mg/dL 6-24 Creatinine, Serum 0.86 mg/dL 0.76-1.27 eGFR If NonAfricn Am 102 mL/min/1.73 >59 eGFR If Africn Am 118 mL/min/1.73 >59 BUN/Creatinine Ratio 14 9-20 Sodium, Serum 135 mmol/L 134-144 Potassium, Serum 4.7 mmol/L 3.5-5.2 Chloride, Serum 94 mmol/L 96-106 Carbon Dioxide, Total 22 mmol/L 18-29 Calcium, Serum 9.3 mg/dL 8.7-10.2 CBC - 11/06/17 08:03 WHITE BLOOD CELL COUNT 6.4 Thousand/uL 3.8-10.8 RED BLOOD CELL COUNT 5.03 Million/uL 4.20-5.80 HEMOGLOBIN 15.4 g/dL 13.2-17.1 HEMATOCRIT 45.4 % 38.5-50.0 MCV 90.3 fL 80.0-100.0 MCH 30.6 pg 27.0-33.0 MCHC 33.9 g/dL 32.0-36.0 RDW 12.8 % 11.0-15.0 PLATELET COUNT 337 Thousand/uL 140-400 MPV 9.1 fL 7.5-12.5 ABSOLUTE NEUTROPHILS 3405 cells/uL 9970-5083 ABSOLUTE LYMPHOCYTES 2106 cells/uL 850-3900 ABSOLUTE MONOCYTES 538 cells/uL 200-950 ABSOLUTE EOSINOPHILS 282 cells/uL 15-500 ABSOLUTE BASOPHILS 70 cells/uL 0-200 NEUTROPHILS 53.2 % NRG LYMPHOCYTES 32.9 % NRG MONOCYTES 8.4 % NRG EOSINOPHILS 4.4 % NRG BASOPHILS 1.1 % NRG Capillary blood glucose measurement by glucometer (mass/volume) - 03/07/18 17: 24 Capillary blood glucose measurement by glucometer (mass/volume) 234 mg/dL 70-110 Streptococcus pyogenes antigen detection - 03/07/18 17:57 Streptococcus pyogenes antigen detection NEGATIVE NEGATIVE Serum heterophile antibody titer - 03/07/18 18:00 Serum heterophile antibody titer NEGATIVE NEGATIVE Complete blood count (CBC) with automated white blood cell (WBC) differential - 03/07/18 18:02 Blood leukocytes automated count (number/volume) 7.6 10*3/uL 4.3-11.0 Blood erythrocytes automated count (number/volume) 4.62 10*6/uL 4.35-5.85 Venous blood hemoglobin measurement (mass/volume) 14.1 g/dL 13.3-17.7 Blood hematocrit (volume fraction) 40 % 40-54 Automated erythrocyte mean corpuscular volume 87 [foz_us] 80-99 Automated erythrocyte mean corpuscular hemoglobin (mass per erythrocyte) 31 pg 25-34 Automated erythrocyte mean corpuscular hemoglobin concentration measurement ( mass/volume) 35 g/dL 32-36 Automated erythrocyte distribution width ratio 13.1 % 10.0-14.5 Automated blood platelet count (count/volume) 368 10*3/uL 130-400 Automated blood platelet mean volume measurement 9.0 [foz_us] 7.4-10.4 Automated blood neutrophils/100 leukocytes 62 % 42-75 Automated blood lymphocytes/100 leukocytes 23 % 12-44 Blood monocytes/100 leukocytes 12 % 0-12 Automated blood eosinophils/100 leukocytes 3 % 0-10 Automated blood basophils/100 leukocytes 1 % 0-10 Blood neutrophils automated count (number/volume) 4.7 10*3 1.8-7.8 Blood lymphocytes automated count (number/volume) 1.8 10*3 1.0-4.0 Blood monocytes automated count (number/volume) 0.9 10*3 0.0-1.0 Automated eosinophil count 0.2 10*3/uL 0.0-0.3 Automated blood basophil count (count/volume) 0.0 10*3/uL 0.0-0.1 Comprehensive metabolic panel - 03/07/18 18:02 Serum or plasma sodium measurement (moles/volume) 136 mmol/L 135-145 Serum or plasma potassium measurement (moles/volume) 4.1 mmol/L 3.6-5.0 Serum or plasma chloride measurement (moles/volume) 98 mmol/L 98-107 Carbon dioxide 25 mmol/L 21-32 Serum or plasma anion gap determination (moles/volume) 13 mmol/L 5-14 Serum or plasma urea nitrogen measurement (mass/volume) 26 mg/dL 7-18 Serum or plasma creatinine measurement (mass/volume) 1.81 mg/dL 0.60-1.30 Serum or plasma urea nitrogen/creatinine mass ratio 14 NRG Serum or plasma creatinine measurement with calculation of estimated glomerular filtration rate 40 NRG Serum or plasma glucose measurement (mass/volume) 204 mg/dL 70-105 Serum or plasma calcium measurement (mass/volume) 10.5 mg/dL 8.5-10.1 Serum or plasma total bilirubin measurement (mass/volume) 0.4 mg/dL 0.1-1.0 Serum or plasma alkaline phosphatase measurement (enzymatic activity/volume) 76 U/L 40-136 Serum or plasma aspartate aminotransferase measurement (enzymatic activity/ volume) 28 U/L 5-34 Serum or plasma alanine aminotransferase measurement (enzymatic activity/volume ) 38 U/L 0-55 Serum or plasma protein measurement (mass/volume) 7.8 g/dL 6.4-8.2 Serum or plasma albumin measurement (mass/volume) 4.5 g/dL 3.2-4.5 Lipase - 03/07/18 18:02 Lipase 27 U/L 8-78 Complete urinalysis with reflex to culture - 03/07/18 19:12 Urine color determination YELLOW NRG Urine clarity determination CLEAR NRG Urine pH measurement by test strip 5 5-9 Specific gravity of urine by test strip 1.020 1.016- 1.022 Urine protein assay by test strip, semi-quantitative NEGATIVE NEGATIVE Urine glucose detection by automated test strip 1+ NEGATIVE Erythrocytes detection in urine sediment by light microscopy NEGATIVE NEGATIVE Urine ketones detection by automated test strip NEGATIVE NEGATIVE Urine nitrite detection by test strip NEGATIVE NEGATIVE Urine total bilirubin detection by test strip NEGATIVE NEGATIVE Urine urobilinogen measurement by automated test strip (mass/volume) NORMAL NORMAL Urine leukocyte esterase detection by dipstick NEGATIVE NEGATIVE Automated urine sediment erythrocyte count by microscopy (number/high power field) NONE NRG Automated urine sediment leukocyte count by microscopy (number/high power field ) NONE NRG Bacteria detection in urine sediment by light microscopy NONE NRG Squamous epithelial cells detection in urine sediment by light microscopy 0-2 NRG Crystals detection in urine sediment by light microscopy NONE NRG Casts detection in urine sediment by light microscopy PRESENT NRG Mucus detection in urine sediment by light microscopy NONE NRG Complete urinalysis with reflex to culture NO NRG Hyaline casts detection in urine sediment by light microscopy 25-50 NRG Encounters ACCT No. Visit Date/Time Discharge Status Pt. Type Provider Facility Loc./Unit Complaint [id number] 01/06/2014 16:33:00 01/06/2014 23:59:59 CLS Outpatient JANELLE STOVER APRN [id number] 11/29/2013 13:19:00 11/29/2013 23:59:59 CLS Outpatient ADÁN VAZQUEZ DO [id number] 2013 10:51:00 2013 23:59:59 CLS Outpatient DESTINEE RODNEY APRN [id number] 11/14/2013 13:46:00 11/14/2013 23:59:59 CLS Outpatient ADÁN VAZQUEZ DO [id number] 10/11/2013 10:43:00 10/11/2013 23:59:59 CLS Outpatient ADÁN VAZQUEZ DO [id number] 09/25/2013 16:52:00 09/25/2013 23:59:59 CLS Outpatient ADÁN VAZQUEZ DO [id number] 01/07/2013 15:07:00 01/07/2013 23:59:59 CLS Outpatient SHAKIRA MATHEW DIONY Woodruff [id number] 01/19/2017 08:44:00 Document Registration [id number] 03/04/2018 13:40:00 03/04/2018 23:59:59 CLS Outpatient WILD SAUNDERS, ANNE MARIE [facility] [id number] 11/06/2017 08:00:00 Document Registration [id number] 03/07/2018 16:51:00 03/07/2018 20:40:00 DIS Emergency TRI TALLEY APRN [facility] ER DIZZINESS;LOW BP [id number] 01/26/2017 09:12:00 Document Registration
== END 2018-03-07 20:40 | disposition home or self-care (01) ==
LOC: EDUNIT# 16:49 → ER 16:51
DX: E86.9 Volume depletion, unspecified (principal); B34.9 Viral infection, unspecified; I10 Essential (primary) hypertension; Z88.5 Allergy status to narcotic agent
CPT/HCPCS: 36415; 71046; 80053; 81000; 82962; 83690; 85025; 86308; 87430

== ENCOUNTER 2021-01-21 05:29 | Outpatient (RCR) | payer OTHER ==
[~2021-01-21] VITALS: Ht 182.9 cm; Wt 104.5 kg
[~2021-01-21 05:29] MED LIST: METF-397 PO; METF500T PO; SERT20OR PO
== END 2021-01-21 13:02 | disposition home or self-care (01) ==
LOC: PREOP 05:29
PROVIDERS: ATTEND Surgery
DX: Z01.812 Encounter for preprocedural laboratory examination (principal); Z12.11 Encounter for screening for malignant neoplasm of colon; Z20.822 Contact with and (suspected) exposure to COVID-19
CPT/HCPCS: 87635

== ENCOUNTER 2021-01-25 07:48 | Day surgery (SDC) | payer OTHER ==
[~2021-01-25] VITALS: Ht 182 cm; Wt 104.0 kg
[2021-01-25] MEDS ORDERED: LACTATED RINGERS 1,000 ML IV STA (07:57)
[2021-01-25] MEDS ORDERED: LACTATED RINGERS 1,000 ML IV ONE (07:58)
[2021-01-25 08:10] VITALS: BP 119/82
--- NOTE | 2021-01-25 08:50 | Progress Note-Pre Operative ---
Pre-Operative Progress Note H&P Reviewed The H&P was reviewed, patient examined and no changes noted. Time Seen by Provider: 08:47 Date H&P Reviewed: Jan 25, 2021 Time H&P Reviewed: 08:49 Pre-Operative Diagnosis: Screening colonoscopy ANNA DEL REAL DO Jan 25, 2021 08:50
[2021-01-25] MEDS ORDERED: PROPOFOL INJECTION 50 ML IV ONE (09:30)
[2021-01-25] MEDS ORDERED: MIDAZOLAM 2 MG/2 ML (VERSED) VIAL ONE (09:31)
[2021-01-25 10:05] VITALS: BP 115/64
[2021-01-25 10:10] VITALS: BP 115/69
--- NOTE | 2021-01-25 10:11 | Progress Note-Post Operative ---
Post-Operative Progess Note Surgeon (s)/Director Instructional Material (s) Surgeon ANNA DEL REAL DO Director Instructional Material: GENE Meyer Pre-Operative Diagnosis Screening colonoscopy Post-Operative Diagnosis Diverticula Int hemorrhoids Procedure & Operative Findings Date of Procedure 01/25/21 Procedure Performed/Findings colonoscopy Anesthesia Type IV sedation by ACO COORDINATOR Estimated Blood Loss Estimated blood loss (mL): scant Specimens/Packing Specimens Removed none ANNA DEL REAL DO Jan 25, 2021 10:11
--- NOTE | 2021-01-25 10:12 | Endoscopy Discharge Instruct ---
Endo Procedure/Findings Findings 1.: Diverticulosis 2.: Internal Hemorrhoids Discharge Instructions - Activity: You might feel a little sleepy until tomorrow. This is due to the medicine you received to relax you. Until tomorrow, you should: NOT drive a car, operate machinery or power tools. NOT drink any alcoholic beverages. NOT make any important decisions or sign importortant papers. Do not return to work until tomorrow, unless otherwise instructed. Resume previous activities tomorrow. Diet: Start by taking liquids. If you tolerate liquids, advance to solid food. 1.: Colonscopy in 10 years Notify Physician - If you experience excessive bleeding, unusual abdominal pain, fever, or chest pain, contact your doctor immediately. ANNA DEL REAL DO Jan 25, 2021 10:12
[2021-01-25 10:15] VITALS: BP 116/72
[2021-01-25 10:20] VITALS: BP 135/92
[2021-01-25 11:15] VITALS: BP 135/92
--- NOTE | 2021-01-25 12:41 | Anesthesia-General Post-Op ---
MAC Patient Condition Mental Status/LOC: Same as Preop Cardiovascular: Satisfactory Nausea/Vomiting: Absent Respiratory: Satisfactory Pain: Controlled Complications: Absent Post Op Complications Complications None Follow Up Care/Instructions Patient Instructions None needed. Anesthesiology Discharge Order Discharge Order Patient is doing well, no complaints, stable vital signs, no apparent adverse anesthesia problems. No complications reported per nursing. DINH CARRASCO CRNA Jan 25, 2021 12:41
--- NOTE | 2021-01-26 17:44 | OPERATIVE REPORT ---
DATE OF SERVICE: 01/25/2021 PREOPERATIVE DIAGNOSIS: Screening colonoscopy. POSTOPERATIVE DIAGNOSES: Diverticula and internal hemorrhoids. PROCEDURE PERFORMED: Colonoscopy. SURGEON: Jacinto Hernandes DO ELEMENTARY MATH TUTOR: Desmond , MS3 SPECIMENS: None. BLOOD LOSS: None. FLUIDS: Per anesthesia. POSTOPERATIVE CONDITION: Stable. INDICATION FOR PROCEDURE: The patient is a 55-year-old male, who needs a screening colonoscopy. FINDINGS: The patient had some diverticula and internal hemorrhoids, but no other obvious pathology. PROCEDURE NOTE: After informed consent was obtained, the patient was brought to the endoscopy suite and placed in the bed in a left lateral decubitus position. He was administered IV sedation by the PRINCIPAL QUALITY ENGINEER, who then monitored his vitals the entire time, heart rate, blood pressure and pulse ox and the scope was inserted, pushed all the way into about 150 cm, on the way in, noted some diverticula and took a picture of this, then able to get to the cecum, noted the ileocecal valve, there was a lot of fecal material that we had to move around to be able to finally visualize the appendix and then slowly withdrew the scope insufflating to look circumferentially at the valera looking the cecum, up the ascending colon to the hepatic flexure, then down the transverse colon, splenic flexure, into the descending colon down in the sigmoid and finally into the rectum, retroflexed in the rectal vault, saw some minimal internal hemorrhoids, took a picture of this and then removed the scope. The patient tolerated the procedure. He was recovered in the endoscopy suite. Job ID: [id number] DocumentID: [id number] Dictated Date: 01/26/2021 13:06:34 Item Processor Date: 01/26/2021 17:43:29 Dictated By: JACINTO HERNANDES DO
== END 2021-01-25 11:15 | disposition home or self-care (01) ==
LOC: ENDO 07:48
PROVIDERS: ATTEND Surgery
DX: Z12.11 Encounter for screening for malignant neoplasm of colon (principal); K57.30 Diverticulosis of large intestine without perforation or abscess without bleeding; K64.8 Other hemorrhoids; I10 Essential (primary) hypertension; E11.9 Type 2 diabetes mellitus without complications; E66.9 Obesity, unspecified; Z68.31 Body mass index [BMI] 31.0-31.9, adult; Z79.84 Long term (current) use of oral hypoglycemic drugs; Z79.899 Other long term (current) drug therapy; Z88.5 Allergy status to narcotic agent; Z90.89 Acquired absence of other organs

== ENCOUNTER → 2021-06-30 | Outpatient (CLI) | payer OTHER | LOC: LABNPT 08:04 | PROVIDERS: ATTEND Family Medicine | DX: Z01.812 Encounter for preprocedural laboratory examination (principal); Z20.822 Contact with and (suspected) exposure to COVID-19 | CPT/HCPCS: 87635 ==

== ENCOUNTER 2021-07-02 19:59 | Outpatient (CLI) | payer OTHER | END 2021-07-03 06:00 | disposition home or self-care (01) | LOC: SLEEP 19:59 | PROVIDERS: ATTEND Family Medicine | DX: Z01.812 Encounter for preprocedural laboratory examination (principal); G47.10 Hypersomnia, unspecified; G47.61 Periodic limb movement disorder; E11.65 Type 2 diabetes mellitus with hyperglycemia; G89.29 Other chronic pain; M54.5 Low back pain; Z68.30 Body mass index [BMI] 30.0-30.9, adult | CPT/HCPCS: 95811 ==